=== PATIENT | male | born 1970 | race Asian ===

== ENCOUNTER 2019-03-18 01:31 | Emergency (ER) | payer BC ==
[~2019-03-18] VITALS: Ht 162.6 cm; Wt 58.1 kg
[2019-03-18 01:37] VITALS: BP 156/90
[2019-03-18] MEDS ORDERED: proparacaine 0.5% ophthalmic drops 15ml EACHEYE ONE (01:45)
[2019-03-18] MEDS ORDERED: ERYT1OIN6 LEFTEYE (02:14)
[2019-03-18] MEDS ORDERED: erythromycin ophthalmic ointment 1gm tube LEFTEYE ONE (02:15)
[2019-03-18] MEDS ORDERED: ibuprofen tablet 400 MG TABLET PO ONE (02:15)
== END 2019-03-18 02:31 | disposition home or self-care (01) ==
LOC: ER 01:32
DX: S05.02XA Injury of conjunctiva and corneal abrasion without foreign body, left eye, initial encounter (principal); Z60.2 Problems related to living alone; Z79.2 Long term (current) use of antibiotics; X58.XXXA Exposure to other specified factors, initial encounter; Y93.89 Activity, other specified; Y92.89 Other specified places as the place of occurrence of the external cause; Y99.8 Other external cause status
CPT/HCPCS: 99283